=== PATIENT | female | born 2005 | race Caucasian/White ===

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

== ENCOUNTER → 2023-02-21 | Outpatient (CLI) | payer OTHER ==
[~2023-02-21] MED LIST changes: +PRED15SO24 PO; -PRED5SOL10 PO
[2023-02-21 13:52] LABS: LITHIUM LEVEL 0.66 MMOL/L (1.0-1.20)
[2023-02-21 13:56] LABS: HEMOGLOBIN A1c 5.3 % (4.0-6.0)
[2023-02-21 13:58] LABS: ALBUMIN 4.2 G/DL (3.2-5.2); ALKALINE PHOSPHATASE 91 U/L (46-116); ALT/SGPT 15 U/L (7.0-40); AST/SGOT 16 U/L (<34); BILIRUBIN,DIRECT < 0.1 MG/DL (<0.4); BILIRUBIN,TOTAL 0.3 MG/DL (0.3-1.2); BLOOD UREA NITROGEN 15 MG/DL (9-23); CALCIUM LEVEL 9.3 MG/DL (8.5-10.1); CARBON DIOXIDE LEVEL 30 MMOL/L (20-31); CHLORIDE LEVEL 107 MMOL/L (98-107); CHOLESTEROL LEVEL 158 MG/DL (<200); CHOLESTEROL RISK RATIO 2.06 (<5); CREATININE FOR GFR 0.84 MG/DL (0.55-1.30); GLUCOSE, FASTING 83 MG/DL (60-100); HDL CHOLESTEROL 76.6 MG/DL (>40); LDL CHOLESTEROL 66.6 MG/DL (<100); MAGNESIUM LEVEL 1.9 MG/DL (1.8-2.4); NON-HDL-C 81.4 MG/DL; POTASSIUM SERUM 4.2 MMOL/L (3.5-5.1); SODIUM LEVEL 141 MMOL/L (136-145); TOTAL PROTEIN 7.2 G/DL (5.7-8.2); TRIGLYCERIDES LEVEL 74 MG/DL (<150)
== END ==
LOC: M LAB 12:36
PROVIDERS: ATTEND Nurse Practitioner Psychiatric/Mental Health
DX: F41.9 Anxiety disorder, unspecified (principal)

== ENCOUNTER → 2023-08-04 | Outpatient (CLI) | payer OTHER ==
[~2023-08-04] MED LIST changes: -HYDR-3910 PO; +HYDR25TA87 PO
[2023-08-04 16:08] LABS: HEMATOCRIT 42.4 % (36.0-47.0); MEAN CORPUSCULAR HEMOGLOBIN 27.6 pg (27.0-33.0); MEAN CORPUSCULAR VOLUME 83.6 fl (80.0-96.0); PLATELET COUNT, AUTOMATED 334 10^3/uL (150-450); RED BLOOD COUNT 5.07 10^6/uL (4.00-5.40); WHITE BLOOD COUNT 10.5 10^3/uL (4.0-10.0)
[2023-08-04 16:24] LABS: HEMOGLOBIN A1c 5.4 % (4.0-6.0)
[2023-08-04 16:44] LABS: IRON (FE) 131 UG/DL (50-170); LITHIUM LEVEL 0.25 MMOL/L (1.0-1.20); PERCENT SATURATION 50.6 % (13.2-45.0); TOTAL IRON BINDING CAPACITY 259 UG/DL (250-425)
[2023-08-04 16:45] LABS: ALBUMIN 4.4 G/DL (3.2-5.2); ALKALINE PHOSPHATASE 120 U/L (46-116); ALT/SGPT 17 U/L (7.0-40); AST/SGOT 13 U/L (<34); BILIRUBIN,TOTAL 0.6 MG/DL (0.3-1.2); BLOOD UREA NITROGEN 14 MG/DL (9-23); CALCIUM LEVEL 9.7 MG/DL (8.5-10.1); CARBON DIOXIDE LEVEL 24 MMOL/L (20-31); CHLORIDE LEVEL 105 MMOL/L (98-107); CHOLESTEROL LEVEL 173 MG/DL (<200); CREATININE FOR GFR 0.93 MG/DL (0.55-1.30); FERRITIN 96.8 NG/ML (7.3-270.7); GLUCOSE, FASTING 90 MG/DL (60-100); HDL CHOLESTEROL 74.9 MG/DL (>40); LDL CHOLESTEROL 84.5 MG/DL (<100); MAGNESIUM LEVEL 1.8 MG/DL (1.8-2.4); NON-HDL-C 98.1 MG/DL; POTASSIUM SERUM 3.7 MMOL/L (3.5-5.1); PROLACTIN 35.01 NG/ML; SODIUM LEVEL 139 MMOL/L (136-145); THYROXINE (T4) 10.9 UG/DL (5.5-11.1); TOTAL 25(OH) VITAMIN D 37.5 NG/ML (20.0-100.0); TOTAL PROTEIN 7.4 G/DL (5.7-8.2); TRIGLYCERIDES LEVEL 68 MG/DL (<150)
[2023-08-04 16:46] LABS: FOLATE 16.58 NG/ML (>5.4); THYROID STIMULATING HORMONE 2.016 uIU/ML (0.48-4.17); VITAMIN B12 LEVEL 718 PG/ML (211-911)
== END ==
LOC: M LAB 15:24
PROVIDERS: ATTEND Nurse Practitioner Psychiatric/Mental Health
DX: F41.9 Anxiety disorder, unspecified (principal)

== ENCOUNTER → 2023-08-06 | Outpatient (CLI) | payer OTHER | LOC: M LAB 08:53 | PROVIDERS: ATTEND Nurse Practitioner Psychiatric/Mental Health | DX: R41.9 Unspecified symptoms and signs involving cognitive functions and awareness (principal) ==

== ENCOUNTER → 2023-09-19 | Outpatient (CLI) | payer OTHER | LOC: M RAD 07:57 | PROVIDERS: ATTEND Nurse Practitioner Family | DX: K76.89 Other specified diseases of liver (principal) ==

== ENCOUNTER → 2023-10-09 | Outpatient (REF) | payer OTHER ==
[2023-10-09 17:24] LABS: RSV AMPLIFICATION NEGATIVE (NEGATIVE)
== END ==
LOC: M LAB REF 16:14
PROVIDERS: ATTEND Physician Assistant
DX: B34.9 Viral infection, unspecified (principal)

== ENCOUNTER → 2024-09-06 | Outpatient (REF) | payer OTHER | LOC: M LAB REF 15:04 | PROVIDERS: ATTEND Physician Assistant | DX: L08.9 Local infection of the skin and subcutaneous tissue, unspecified (principal) ==

== ENCOUNTER → 2024-09-20 | Outpatient (CLI) | payer OTHER ==
[~2024-09-20] MED LIST changes: +ISOVUE-370 76% 100 ML VIAL As Ordered ONE
== END ==
LOC: M RAD 10:02
PROVIDERS: ATTEND Nurse Practitioner Family
DX: K76.89 Other specified diseases of liver (principal)
CPT/HCPCS: 74177; Q9967